=== PATIENT | female | born 1955 | race Caucasian/White ===

== ENCOUNTER → 2016-05-01 | Outpatient (CLI) | payer BC ==
[~2016-05-01] MED LIST: ACET-1175 PO; ASPI-435 PO; CHOL100010 PO; FERR325T PO; INSDGIPEN SC; LEVO75TA PO; LISI5TAB PO; LPT/40 PO; METO25TA3 PO; MRLP120 PO; NVLGI SC; NXM/40 PO; OXGN; TRIA0.1O12 EX; ZNTT/150 PO
--- NOTE | 2016-05-02 06:01 | SPLIT NIGHT TECHNICIAN REPORT ---
[facility] Split Night Polysomnogram - Mill Operator Report Study date: 05/01/2016 Referring Physician: Rosaura Covington M.D. Name: MOLLY HARRIS Mill Operator: DAGOBERTO Mary. Date of : 1955 Height: 61 years, Height 5' 4" Sex: Female Weight: 192 lbs Age: 61 Neck Circum:15.75inches, BMI: Medications: 32.95 Lipitor 40mg, Toujeo Solostar 300unit/ml, Norvasc 2.5mg, Esomrprazole Magnesium 40mg, Toprol XL 50mg, FEOsol 325mg, Prinivil 10mg, Vit D3, Novolog Flexpen 100unit/ml, Combivent, Nitrostat 0.4mg, Levothyroxine 75mcg, Oxygen, ASA 81mg, Tylenol, Miralax Patient History Study started on room air with ETCO2 monitoring in room #6. 61 yr old female here tonight for a possible split psg. She usually sleeps with 2lpm oxygen but order was stated to start on room air. Nocturnal oximetry done in 2013 showed 3.5 hours of desaturations. She has a history of inoperable CAD. Her skin was very pale, almost pasty upon arrival at the sleep lab and she had to sit with her oxygen on before supervisor curing room. Her ESS=8/24. Neck circ=15.75inches. Parameters Monitored NPSG: E1-M2, E2-M1, Fp1-M2, Fp2-M1, F3-M2, F4-M2, F4-M1, C3-M2, C4-M2, C4-M1, O1-M2, O2-M2, O2-M1, T3-M2, T4-M1, P3-M2, P4-M1, CHIN1, CHIN2, HR, EKG, Legs, PFLOW, SNOR, FLOW, CFLOW, Tidal Volume, THOR, ABDO, SpO2, PLTH, CPRESS, ETCO2 Wave, ETCO2, pH SLEEP SUMMARY DATA DIAGNOSTIC TREATMENT Lights Out: 10:15:59 PM 1:23:29 AM Lights On: 1:08:29 AM 5:22:29 AM Total Recording Time (TRT): 172.5 min. 239.0 min. Total Sleep Time (TST): 120.5 min. 218.5 min. NREM Time: 119.5 min. 161.0 min. REM Time: 1.0 min. 57.5 min. Sleep Period Time (SPT): 148.0 min. 223.5 min. Sleep Efficiency (SE): 70 % 91 % Sleep Latency: 24.5 min. 14.0 min. Arousal Index: 36.3 3.3 PAP Treatment Levels: 5, 7, 9, 10 * Optimal Pressure(s) SLEEP STAGING DATA DIAGNOSTIC TREATMENT Duration (min) TST % Duration (min) TST % Stage Wake: 52.0 min. -- 20.5 min. -- WASO: 27.5 min. -- 5.0 min. -- NREM: 119.5 min. 99 % 161.0 min. 74 % Stage N1: 10.0 min. 8 % 6.5 min. 3 % Stage N2: 83.5 min. 69 % 95.5 min. 44 % Stage N3: 26.0 min. 22 % 59.0 min. 27 % REM: 1.0 min. 1 % 57.5 min. 26 % POSITIONAL DATA Event Count Index Event Count Index Supine: 48 23.9 36 9.9 Supine NREM: 47 23.6 12 4.5 Supine REM: 1 60 24 25 Non-Supine: N/A N/A N/A N/A Non-Supine NREM: N/A N/A N/A N/A Non-Supine REM: N/A N/A N/A N/A AROUSAL SUMMARY DATA: Event Count Index Event Count Index Apnea Arousals: 4 3.0 0 0.0 Hypopnea Arousals: 5 2.5 3 0.8 Snore Arousals: 4 2.0 0 0.0 PLM Arousals: 0 0.0 0 0.0 Non-Specific Arousals: 59 29.4 9 2.5 Total Arousals: 73 36.3 12 3.3 MYOCLONUS (PLM) Event Count Index Event Count Index PLM: 0 0.0 0 0.0 PLM AROUSAL: 0 0.0 0 0.0 PLM W/O AROUSAL 0 0.0 0 0.0 PLM W/RESP EVENT 0 0.0 0 0.0 MYOCLONUS (PLM) Event Count Index Event Count Index LM: 1 5.5 3 0.8 LM AROUSAL: 1 0.5 0 0.0 LM W/O AROUSAL LM W/RESP EVENT LM NON SPECIFIC 10 5.0 2 0.5 HEART RATE DATA DIAGNOSTIC TREATMENT Sleep (bpm): 69 64 REM (bpm): 72 82 NREM (bpm): 79 85 Tachycardia Count: 0 0 Tachycardia Duration: 0.00 0 Bradycardia Count: 0 0 Bradycardia Duration: 0.00 0 DIAGNOSTIC PORTION TREATMENT PORTION RESPIRATORY DATA Event Count Index Event Count Index AHI: -- 23.9 -- 9.9 RDI: -- 23.9 -- 10 Obstructive Apnea: 6 3.0 0 0.0 Central Apnea: 0 0.0 0 0.0 Mixed Apnea: 0 0.0 0 0.0 Hypopnea: 42 20.9 36 9.9 RERA: 0 0.0 0 0.0 Total Apneas: 6 3.0 0 0.0 RESPIRATORY DATA REM NREM SLEEP REM NREM SLEEP Supine Position: Obstructive Apneas: 1 5 6 0 0 0 Central Apneas: 0 0 0 0 0 0 Mixed Apneas: 0 0 0 0 0 0 Hypopneas: 0 42 42 24 12 36 RERA 0 0 0 0 0 0 Total Supine Events: 1 47 48 24 12 36 Supine AHI: 60 23.6 23.9 25 4.5 9.9 Supine RDI: 60.0 23.6 23.9 25.0 4.5 9.9 REM NREM SLEEP REM NREM SLEEP Non-Supine Position: Obstructive Apneas: N/A N/A N/A N/A N/A N/A Central Apneas: N/A N/A N/A N/A N/A N/A Mixed Apneas: N/A N/A N/A N/A N/A N/A Hypopneas: N/A N/A N/A N/A N/A N/A RERA N/A N/A N/A N/A N/A N/A Total Supine Events: N/A N/A N/A N/A N/A N/A Supine AHI: N/A N/A N/A N/A N/A N/A Supine RDI: N/A N/A N/A N/A N/A N/A OXYGEN DESTAURATION DATA: Event Count Index Event Count Index REM Desaturations: 1 60.0 36 37.6 NREM Desaturations: 119 59.7 28 10.4 SNORE DATA DIAGNOSTIC TREATMENT Snore Time: 1.3 1:37:29 AM Snore TST%: 1 0 Snore Arousal Count: 4 0 Snore Arousal Index: 2.0 0.0 Desaturation Event Summary: Minimum %SpO2 Event Count Mean/Min/Max Duration(sec.) Desaturation Index % Time In Bed > 90 3 34.3 / 25.3 / 39.8 14.4 3.0 86 - 90 33 31.4 / 14.3 / 60.0 20.1 24.0 81 - 85 121 25.8 / 8.0 / 59.5 54.6 32.5 76 - 80 105 23.5 / 8.0 / 60.0 50.0 30.8 71 - 75 11 23.3 / 14.3 / 49.8 20.3 8.0 66 - 70 3 17.3 / 15.0 / 22.0 55.0 0.8 61 - 65 2 15.0 / 15.0 / 15.0 61.4 0.5 56 - 60 0 N/A 0.0 0.2 51 - 55 0 N/A 0.0 0.1 < 50 0 N/A 0.0 0.0 OXYGEN SATURATION DATA DIAGNOSTIC TREATMENT SpO2 Mean Sleep: 79 % 84 % SpO2 Mean REM: 72 % 82 % SpO2 Mean NREM: 79 % 85 % SpO2 Minimum Sleep: 51 % 54 % SpO2 Minimum REM: 55 % 54 % SpO2 Minimum NREM: 51 % 68 % Time Below 90% (TST): 120.5 194.4 Time Below 88% (TST): 120.5 175.4 Total REM NREM Awake <50% 0.0 min. 0.0 min. 0.0 min. 0.0 min. 51 - 60% 1.4 min. 0.9 min. 0.2 min. 0.4 min. 61 - 70% 5.2 min. 4.3 min. 0.8 min. 0.2 min. 71 - 80% 158.6 min. 14.0 min. 111.1 min. 33.5 min. 81 - 90% 231.2 min. 38.0 min. 158.3 min. 34.9 min. 91 - 100% 12.5 min. 1.3 min. 10.1 min. 1.1 min. Average 82 81 82 81 Minimum SpO2 51 54 51 54 Desaturation Event Index 30.3 37.9 31.4 19.9 # Desat. Events below 89% 208 37 147 24 Time(%) with Saturation below 89% 91.2 13.0 61.7 16.4 Time(min.) with Saturation below 89% 372.9 53.3 252.4 67.2 Recording Mill Operator Comments: Mrs. Harris slept in the supine position with the head of her bed elevated. No cardiac arrhythmia or PLM's noted. No bruxism noted. Snoring was noted and scored as a 2 on a scale of 1 through 5. (0=no snoring, 5=snoring loud enough to be heard through a closed door or down the caban way) At 1:23am she had met specific Split-Night criteria during the diagnostic portion of this study. CPAP was initiated at +5 CMH2O and up-titrated to a level of +10 CMH2O, and 3lpm of oxygen. Oxygen was added because of oxygen saturation levels in the 50's. This was added and an optimal pressure was never achieved. She is already qualified for oxygen use and does not have Medicare. A small Simplus full face mask by [employer] was used during titration. She did not use the restroom during the night. She stated that she did not sleep as well as when at home. The final report will be interpreted and signed by a sleep physician. The completed physician report will then be placed in the patient medical record. Therapy Event: Therapy (cm H20) 0 5 7 9 10 Total Time at Pressure (min.) 172.5 39.8 12.1 134.8 52.3 TST at Pressure (min.) 120.5 25.3 12.1 130.3 50.8 # Periods 1 1 1 1 1 Sleep Onset (min.) 24.5 14.0 0.0 0.0 0.0 REM Onset (min.) 109.5 N/A 0.7 0.0 0.0 Sleep Efficiency % 69 63 100 96 97 Wakefulness (%) 30.1 36.4 0.0 3.3 2.9 Wakefulness (min.) 52.0 14.5 0.0 4.5 1.5 NREM 1 (%) 5.8 11.3 0.0 1.5 0.0 NREM 1 (min.) 10.0 4.5 0.0 2.0 0.0 NREM 2 (%) 48.4 52.2 5.9 39.7 39.2 NREM 2 (min.) 83.5 20.8 0.7 53.5 20.5 NREM 3 (%) 15.1 0.0 0.0 37.5 16.3 NREM 3 (min.) 26.0 0.0 0.0 50.5 8.5 REM (%) 0.6 0.0 94.1 18.0 41.6 REM (min.) 1.0 0.0 11.4 24.3 21.8 # Arousals 73 5 2 5 0 Arousal Index 36.3 11.9 9.9 2.3 0.0 # Snore 82 1 0 1 0 Snore Index 40.8 2.4 0.0 0.5 0.0 AHI 23.9 19.0 49.4 6.0 5.9 AHI Supine 23.9 19.0 49.4 6.0 5.9 AHI Non-Supine N/A N/A N/A N/A N/A NREM AHI 23.6 19.0 83.4 1.1 2.1 REM AHI 60.0 N/A 47.3 27.1 11.0 RDI 23.9 19.0 49.4 6.0 5.9 # Obstructive 6 0 0 0 0 # Central Ap 0 0 0 0 0 # Mixed 0 0 0 0 0 # Hypopneas 42 8 10 13 5 RERAS 0 0 0 0 0 Total Respiratory Events 48 8 10 13 5 Time Below SpO2 89.00% (min.) 120.5 25.3 12.1 128.9 18.9 Mean NREM SpO2 (%) 79 75 75 86 90 Mean REM SpO2 (%) 72 N/A 72 82 86 Mean Sleep SpO2 (%) 79 75 72 85 88 Min NREM SpO2 (%) 51 70 68 81 87 Min REM SpO2 (%) 55 N/A 54 74 79 Position Supine (min.) 120.5 25.3 12.1 130.3 50.8 Position Non-supine (min.) 0.0 0.0 0.0 0.0 0.0 LM Index Sleep 5.5 0.0 0.0 0.5 2.4 LM Index NREM 5.5 0.0 0.0 0.0 2.1 LM Index REM 0.0 N/A 0.0 2.5 2.8 Mean Heart Rate (bpm) 69 66 67 63 63 Min Heart Rate (bpm) 55 63 59 60 60
--- NOTE | 2016-05-09 07:23 | POLYSOMNOGRAPH REPORT ---
REFERRING PERSON: Dr. Yvette Covington. BEATER ENGINEER: Susannah Brown. Ms. Arora is a 61-year-old female sent for a split night sleep study. She usually sleeps with 2 liters of oxygen at bedtime. Nocturnal oximetry in 2013 showed 3.5 hours with desaturations. She has a history of inoperable coronary artery disease. [place] sleepiness scale score on the evening of this study is 8. BMI 32.95. Following the technical and digital specifications of the [place] (AASM) a standard diagnostic polysomnogram was performed monitoring EEG, EOG, EMG (chin and leg deviations), oxygen saturation, body position, digital video, respiratory effort and airflow. The sleep Stage and event scoring was based on the AASM Manual for the Scoring of Sleep and Associated Events 2007 edition. Apneas are defined as a drop in the peak thermal sensor excursion by >90% of baseline for at least 10 seconds. Hypopneas were scored using the 4% oxygen desaturation rule (4A-Medicare) and a decrease in the nasal pressure excursions by >30% of baseline for at least 10 seconds. Respiratory effort-related arousal (RERA's) is defined as a sequence of breaths lasting at least 10 seconds characterized by increasing respiratory effort or flattening of the nasal pressure waveform leading to an arousal from sleep when the sequence of breaths does not meet criteria for an apnea or hypopnea. Apnea Hypopnea index (AHI) is defined as the number of apneas and hypopneas occurring in an hour of sleep. Respiratory disturbance index (RDI) is defined as the number of apneas, hypopneas, and RERA's occurring in an hour of sleep. Ms. Arora did qualify for a split night sleep study. She was observed for 120.5 minutes of sleep time. During that time, she had 8% N1 sleep, 69% N2 sleep, 22% N3 sleep, and 1% REM sleep. There were 73 cortical arousals from sleep. 59 of these arousals were nonspecific, 4 were due to snoring and 9 were due to respiratory events. There were no periodic limb movements of sleep during observation. Mean saturation during observation was very low at 79% with desaturations to 51% with a respiratory event. This was conducted on room air. During observation there were 6 obstructive apneas, no central and no mixed apneas. There were 42 hypopnea. Apnea-hypopnea index was 23.9. Therefore, at 1:30 a.m., the patient was started on CPAP therapy. Over the remainder of the night, she was titrated from a CPAP pressure of 4 to a CPAP pressure of 10. Increasing pressures were needed to prevent apneas, hypopneas and arousals. She was observed on a pressure of 10 for 50.8 minutes of sleep time. 21.8 of those minutes were spent in REM sleep. This was supine REM sleep. AHI and RDI on this pressure were both 5.9. Saturations continued to drop below 70% and oxygen was titrated. She ultimately ended the study with improved saturations and apnea on CPAP at 10 and 3 liters of supplemental oxygen. IMPRESSION AND PLAN: 61-year-old female with inoperable coronary artery disease who has moderately severe sleep apnea on this sleep study as well as very significant nocturnal hypoxemia on room air. It appears that she does well on CPAP at a pressure of 10 with 3 liters of supplemental oxygen. A download from her machine should be reviewed in 1 month both to check compliance as well as AHI and further pressure adjustments can occur at that time. An NPO on these setting should also be performed to confirm her hypoxemia resolves fully on these settings. She used a small Simplus full facemask by [employer] for this titration.
== END | disposition home or self-care (01) ==
LOC: C.NEUR 21:00
PROVIDERS: ATTEND Family Medicine
DX: G47.34 Idiopathic sleep related nonobstructive alveolar hypoventilation (principal); R06.83 Snoring; G47.09 Other insomnia; G47.10 Hypersomnia, unspecified

== ENCOUNTER → 2016-06-07 | Outpatient (CLI) | payer BC ==
[~2016-06-07] MED LIST changes: +FERR1TAB62 PO; -FERR325T PO
[2016-06-08 07:09] LABS: ESTIMATED AVERAGE GLUCOSE 226 mg/dl; HA1C FLAG Normal (Normal)
== END | disposition home or self-care (01) ==
LOC: C.LAB1850 16:23
PROVIDERS: ATTEND Nurse Practitioner Family
DX: E11.65 Type 2 diabetes mellitus with hyperglycemia (principal)

== ENCOUNTER → 2016-09-07 | Outpatient (CLI) | payer BC ==
[~2016-09-07] MED LIST changes: -FERR1TAB62 PO; +FERR325T PO
[2016-09-07 17:43] LABS: ESTIMATED AVERAGE GLUCOSE 341 mg/dl; HA1C FLAG Normal (Normal)
[2016-09-07 18:04] LABS: ALT/SGPT 12 U/L (12-78); BLOOD UREA NITROGEN 38 mg/dl (7-18); BUN/CREATININE RATIO 21.1 (10-20); CALCIUM 9.1 mg/dl (8.5-10.1); CARBON DIOXIDE 35 mmol/L (21-32); CHLORIDE 102 mmol/L (98-107); CHOLESTEROL 215 mg/dl (0-200); GLUCOSE 252 mg/dl (70-99); POTASSIUM 4.6 mmol/L (3.5-5.1); SODIUM 138 mmol/L (136-145); TRIGLYCERIDES 140 mg/dl (0-150); VERY LOW DENSITY LIPOPROT CALC 28 mg/dl
[2016-09-07 18:15] LABS: ALB/GLOB RATIO 0.8 (0.9-2); ALKALINE PHOSPHATASE 74 U/L (45-117); AST/SGOT 5 U/L (15-37); CHOLESTEROL/HDL RATIO 4.9; HDL CHOLESTEROL 44 mg/dl; LDL CHOLESTEROL CALCULATED 143 mg/dl
== END | disposition home or self-care (01) ==
LOC: C.LAB1850 16:49
PROVIDERS: ATTEND Nurse Practitioner Family
DX: E11.65 Type 2 diabetes mellitus with hyperglycemia (principal); E11.22 Type 2 diabetes mellitus with diabetic chronic kidney disease; N18.3 Chronic kidney disease, stage 3 (moderate)

== ENCOUNTER → 2016-12-19 | Outpatient (CLI) | payer BC ==
[~2016-12-19] MED LIST changes: +FERR1TAB62 PO; -FERR325T PO
[2016-12-20 06:20] LABS: ESTIMATED AVERAGE GLUCOSE 407 mg/dl; HA1C FLAG Normal (Normal)
== END | disposition home or self-care (01) ==
LOC: C.LAB1850 17:04
PROVIDERS: ATTEND Nurse Practitioner Family
DX: E11.65 Type 2 diabetes mellitus with hyperglycemia (principal)

== ENCOUNTER → 2017-02-16 | Outpatient (CLI) | payer BC ==
--- NOTE | 2017-02-16 15:08 | MAMMOGRAPHY REPORT ---
BILATERAL DIGITAL SCREENING MAMMOGRAM TOMOSYNTHESIS WITH CAD: 02/16/2017 CLINICAL HISTORY: Routine screening. Patient has no complaints. TECHNIQUE: Breast tomosynthesis in addition to standard 2D mammography was performed. Current study was also evaluated with a Computer Aided Detection (CAD) system. COMPARISON: Comparison is made to exams dated: 03/18/2014 mammogram and 07/03/2012 mammogram - [facility]. BREAST COMPOSITION: The tissue of both breasts is almost entirely fatty. FINDINGS: No suspicious masses, calcifications, or areas of architectural distortion are noted in ei ther breast. There has been no significant interval change compared to prior exams. Scattered bilater al benign-appearing calcifications are not significantly changed. IMPRESSION: ACR BI-RADS CATEGORY 2: BENIGN There is no mammographic evidence of malignancy. A 1 year screening mammogram is recommended. The pa tient will receive written notification of the results. Approximately 10% of breast cancers are not detected with mammography. A negative mammographic report should not delay biopsy if a clinically suggestive mass is present. Rylie Boss M.D. ah/:02/16/2017 12:14:50 Fishing Lure Assembler: Diane MARTINEZ(Osei)(M), [facility] letter sent: Normal 1/2 BI-RADS Code: ACR BI-RADS Category 2: Benign
== END | disposition home or self-care (01) ==
LOC: C.MAMM 10:19
PROVIDERS: ATTEND Internal Medicine
DX: Z12.31 Encounter for screening mammogram for malignant neoplasm of breast (principal)

== ENCOUNTER → 2017-03-29 | Outpatient (CLI) | payer BC ==
[~2017-03-29] MED LIST changes: -METO25TA3 PO; +METO25TA4 PO; +RANI150T85 PO; -ZNTT/150 PO
[2017-03-30 06:42] LABS: HEMOGLOBIN A1C 15.1 % (4.5-5.6)
== END | disposition home or self-care (01) ==
LOC: C.LAB1850 16:55
PROVIDERS: ATTEND Nurse Practitioner Family
DX: E11.65 Type 2 diabetes mellitus with hyperglycemia (principal)